=== PATIENT | male | born 1955 | race Caucasian/White ===

== ENCOUNTER → 2021-05-31 | Outpatient (CLI) | payer MEDICARE | END | disposition home or self-care (01) | LOC: LABWHC1 10:41 | PROVIDERS: ATTEND Internal Medicine Nephrology | DX: Z94.0 Kidney transplant status (principal) | CPT/HCPCS: 36415; 80197; 83970; 84153 ==

== ENCOUNTER → 2021-12-15 | Outpatient (CLI) | payer MEDICARE ==
--- NOTE | 2021-12-15 11:54 | XR ---
EXAMINATION TYPE: XR abdomen 1V DATE OF EXAM: 12/15/2021 11:39 AM CLINICAL HISTORY: Status post pancreatic duct stent placed 2 weeks ago with rising lab values. TECHNIQUE: Two Supine KUB images of the abdomen are obtained. COMPARISON: None. FINDINGS: Scattered gas is seen in nondistended small and large bowel loops. Cystectomy clips are pre sent. Additional surgical clips overlie the left pelvis and right mid abdomen. Scattered vascular abdi cification is seen. Metallic hardware from right hip arthroplasty is partially imaged. No radiodense catheter or stent in the epigastric region or right upper to mid abdomen clearly identified. IMPRESSION: As above. Consider further investigation with CT exam based on clinical and lab correlati on.
== END | disposition home or self-care (01) ==
LOC: RADXRMAIN 11:22
PROVIDERS: ATTEND Internal Medicine Gastroenterology
DX: Z96.89 Presence of other specified functional implants (principal); Z96.641 Presence of right artificial hip joint
CPT/HCPCS: 74018

== ENCOUNTER → 2022-03-01 | Outpatient (CLI) | payer MEDICARE ==
[2022-03-01 11:38] LABS: Creatinine,Urine Random 162.1 mg/dL; Protein/Creatinine Ratio,Urine 0.043
[2022-03-01 14:39] LABS: HCT 39.2 % (39.6-50.0); HGB 12.2 g/dL (13.0-17.0); MCH 27.7 pg (27.0-32.0); MCHC 31.1 g/dL (32.0-37.0); MCV 89.1 fL (80.0-97.0); Mean Platelet Volume 10.5 fL (9.5-12.2); NRBC Per 100 WBC 0 /100 WBCS (0.0-0.0); Platelet Count 222 X 10*3/uL (140-440); RDW 13.2 % (11.5-14.5); WBC 8.73 X 10*3/uL (4.50-10.00)
[2022-03-01 14:45] LABS: % Iron Saturation 14.64 (15.00-50.00)
[2022-03-01 14:46] LABS: African American GFR (CKD) 51.7 (60.0-200.0); Albumin 4.4 g/dL (3.8-4.9); Albumin/Globulin Ratio 1.84 (1.60-3.17); Anion Gap 12.4 mmol/L (10.00-18.00); BUN/Creat Ratio 17.17 Ratio (12.00-20.00); Blood Urea Nitrogen 27.3 mg/dL (9.0-27.0); Calcium 9.5 mg/dL (8.7-10.3); Carbon Dioxide 25.9 mmol/L (20.0-27.5); Globulin 2.4 g/dL (1.6-3.3); Non-African American GFR(CKD) 44.6 (60.0-200.0); Potassium 4.2 mmol/L (3.5-5.5); Total Bilirubin 0.3 mg/dL (0.30-1.20); Total Protein 6.7 g/dL (6.2-8.2)
[2022-03-01 19:50] LABS: Appearance,Urine Clear (Clear); Bilirubin,Urine Negative (Negative); Blood,Urine Negative (Negative); Color,Urine Yellow (Yellow); Ketones,Urine Trace mg/dL (Negative); Nitrite,Urine Negative (Negative); Specific Gravity,Urine 1.019 (1.001-1.030); Urobilinogen,Urine 0.2 (0.2,1.0)
== END | disposition home or self-care (01) ==
LOC: LABWHC1 09:25
PROVIDERS: ATTEND Internal Medicine Nephrology
DX: Z94.0 Kidney transplant status (principal)
CPT/HCPCS: 36415; 80053; 80197; 81003; 82570; 82728; 83540; 83550; 84156; 85027

== ENCOUNTER → 2022-04-21 | Outpatient (CLI) | payer MEDICARE ==
[2022-04-21 14:40] LABS: African American GFR (CKD) 51.3 (60.0-200.0); BUN/Creat Ratio 17.5 Ratio (12.00-20.00); Calcium 9.9 mg/dL (8.7-10.3); Non-African American GFR(CKD) 44.2 (60.0-200.0)
== END | disposition home or self-care (01) ==
LOC: LABWHC1 10:16
PROVIDERS: ATTEND Internal Medicine Nephrology
DX: Z94.0 Kidney transplant status (principal)
CPT/HCPCS: 36415; 80048; 80197

== ENCOUNTER → 2022-05-28 | Outpatient (CLI) | payer MEDICARE ==
[2022-05-28 11:17] LABS: Protein/Creatinine Ratio,Urine 0.032
[2022-05-28 16:35] LABS: Basophils # (A) 0.06 X 10*3/uL (0.00-0.10); Basophils % (A) 0.7 %; Eosinophils # (A) 0.11 X 10*3/uL (0.04-0.35); Eosinophils % (A) 1.3 %; HCT 39.2 % (39.6-50.0); HGB 12.5 g/dL (13.0-17.0); Immature Grans, Automated 0.5 %; Lymphocytes # (A) 2.37 X 10*3/uL (0.90-5.00); Lymphocytes % (A) 27.2 %; MCH 28.3 pg (27.0-32.0); MCHC 31.9 g/dL (32.0-37.0); MCV 88.9 fL (80.0-97.0); Monocytes # (A) 0.81 X 10*3/uL (0.20-1.00); Monocytes % (A) 9.3 %; NRBC Per 100 WBC 0 /100 WBCS (0.0-0.0); Neutrophils # (A) 5.31 X 10*3/uL (1.80-7.70); Platelet Count 234 X 10*3/uL (140-440); RBC 4.41 X 10*6/uL (4.40-5.60); RDW 13.3 % (11.5-14.5)
[2022-05-28 17:08] LABS: ALT 16 U/L (10-49); AST 18 U/L (14-35); African American GFR (CKD) 51.3 (60.0-200.0); Albumin 4.5 g/dL (3.8-4.9); Albumin/Globulin Ratio 1.93 (1.60-3.17); Alkaline Phosphatase 166 U/L (41-126); Blood Urea Nitrogen 39.2 mg/dL (9.0-27.0); Calcium 9.7 mg/dL (8.7-10.3); Carbon Dioxide 23.4 mmol/L (20.0-27.5); Chloride 101 mmol/L (96-109); Chol/HDL Ratio 3.28 Ratio; Globulin 2.3 g/dL (1.6-3.3); Glucose 128 mg/dL (70-110); LDL Cholesterol,Calculated 41.9 mg/dL (0.0-131.0); Magnesium 1.8 mg/dL (1.5-2.4); Non-African American GFR(CKD) 44.2 (60.0-200.0); Phosphorus 3.1 mg/dL (2.4-5.1); Potassium 4.3 mmol/L (3.5-5.5); Sodium 138 mmol/L (135-145); Total Protein 6.9 g/dL (6.2-8.2)
[2022-05-28 17:33] LABS: Appearance,Urine Cloudy (Clear); Bilirubin,Urine Negative (Negative); Blood,Urine Negative (Negative); Color,Urine Yellow (Yellow); Ketones,Urine Trace mg/dL (Negative); Nitrite,Urine Negative (Negative); PH, Urine 5.5 (5.0-8.0); Specific Gravity,Urine 1.021 (1.001-1.030); Urobilinogen,Urine 0.2 (0.2,1.0)
[2022-05-28 18:06] LABS: Bacteria,Urine None Seen /HPF (None Seen); Calcium Oxalate Crystals,Urine Present /LPF (None Seen)
== END | disposition home or self-care (01) ==
LOC: LABWHC1 09:20
PROVIDERS: ATTEND Internal Medicine Nephrology
DX: Z94.0 Kidney transplant status (principal)
CPT/HCPCS: 36415; 80053; 80061; 80197; 81001; 82570; 83735; 84100; 84156; 85025

== ENCOUNTER → 2022-06-27 | Outpatient (CLI) | payer MEDICARE ==
[2022-06-27 10:02] LABS: INR 1.2 (<1.2); Prothrombin Time 12.6 sec (9.0-12.0)
[2022-06-27 15:14] LABS: HCT 41.9 % (39.6-50.0); HGB 13.1 g/dL (13.0-17.0); MCH 28.2 pg (27.0-32.0); MCHC 31.3 g/dL (32.0-37.0); MCV 90.3 fL (80.0-97.0); Mean Platelet Volume 10.6 fL (9.5-12.2); NRBC Per 100 WBC 0 /100 WBCS (0.0-0.0); Platelet Count 232 X 10*3/uL (140-440); RBC 4.64 X 10*6/uL (4.40-5.60); RDW 13.5 % (11.5-14.5); WBC 7.81 X 10*3/uL (4.50-10.00)
[2022-06-27 16:07] LABS: African American GFR (CKD) 55.4 (60.0-200.0); BUN/Creat Ratio 18.93 Ratio (12.00-20.00); Blood Urea Nitrogen 28.4 mg/dL (9.0-27.0); Calcium 10.1 mg/dL (8.7-10.3); Non-African American GFR(CKD) 47.8 (60.0-200.0); Potassium 4.1 mmol/L (3.5-5.5)
== END | disposition home or self-care (01) ==
LOC: LABWHC1 08:43
PROVIDERS: ATTEND Nurse Practitioner Family
DX: Z01.810 Encounter for preprocedural cardiovascular examination (principal); I10 Essential (primary) hypertension; I48.11 Longstanding persistent atrial fibrillation
CPT/HCPCS: 36415; 80048; 85027; 85610; 85730

== ENCOUNTER → 2023-02-24 | Outpatient (CLI) | payer MEDICARE ==
[2023-02-24 15:55] LABS: % Iron Saturation 18.21 (15.00-50.00); ALT 17 U/L (10-49); AST 13 U/L (14-35); Albumin 4.3 d/dL (3.8-4.9); Albumin/Globulin Ratio 1.72 Ratio (1.60-3.17); Alkaline Phosphatase 202 U/L (41-126); BUN/Creat Ratio 18.23 Ratio (12.00-20.00); Blood Urea Nitrogen 23.7 mg/dL (9.0-27.0); Calcium 9.7 mg/dL (8.7-10.3); Chloride 102 mmol/L (96-109); Chol/HDL Ratio 2.95 Ratio; Globulin 2.5 d/dL (1.6-3.3); Glucose 180 mg/dL (70-110); Iron 51 UG/DL (65-175); LDL Cholesterol,Calculated 42.5 mg/dL (0.0-131.0); Sodium 142 mmol/L (135-145); Total Bilirubin <0.2 mg/dL (0.3-1.2); Total Iron Binding Capacity 280 UG/DL (228-460); Total Protein 6.8 d/dL (6.2-8.2)
[2023-02-24 15:56] LABS: Basophils # (A) 0.04 X 10*3/uL (0.00-0.10); Basophils % (A) 0.6 %; Eosinophils # (A) 0.11 X 10*3/uL (0.04-0.35); Eosinophils % (A) 1.6 %; HCT 39.9 % (39.6-50.0); HGB 12.8 d/dL (12.0-15.0); Lymphocytes # (A) 1.53 X 10*3/uL (0.90-5.00); Lymphocytes % (A) 22.8 %; MCH 28.9 pg (27.0-32.0); MCHC 32.1 d/dL (32.0-37.0); MCV 90.1 FL (80.0-97.0); Mean Platelet Volume 10.2 FL (9.5-12.2); Monocytes # (A) 0.59 X 10*3/uL (0.20-1.00); Monocytes % (A) 8.8 %; NRBC Per 100 WBC 0 X 10*3/uL (0.00-0.01); Neutrophils # (A) 4.41 X 10*3/uL (1.80-7.70); Neutrophils % (A) 65.8 %; Platelet Count 207 X 10*3/uL (140-440); RBC 4.43 X 10*6/uL (4.40-5.60); RDW 13.4 % (11.5-14.5); WBC 6.71 X 10*3/uL (4.50-10.00)
[2023-02-24 16:28] LABS: Appearance,Urine Clear (Clear); Bilirubin,Urine Negative (Negative); Blood,Urine Negative (Negative); Color,Urine Yellow (Yellow); Ketones,Urine Negative (Negative); Nitrite,Urine Negative (Negative); PH, Urine 7.5; Specific Gravity,Urine 1.017 (1.001-1.030); Urobilinogen,Urine 0.2
== END | disposition home or self-care (01) ==
LOC: LABWHC1 08:26
PROVIDERS: ATTEND Internal Medicine Nephrology
DX: N18.30 Chronic kidney disease, stage 3 unspecified (principal)
CPT/HCPCS: 36415; 80053; 80061; 80197; 81003; 82043; 82570; 82728; 83540; 83550; 83970; 84100; 84153; 85025

== ENCOUNTER → 2023-08-23 | Outpatient (CLI) | payer MEDICARE ==
[2023-08-23 15:38] LABS: % Iron Saturation 21.66 (15.00-50.00); ALT 15 U/L (10-49); AST 13 U/L (14-35); Albumin 4.4 g/dL (3.8-4.9); Albumin/Globulin Ratio 1.57 Ratio (1.60-3.17); Alkaline Phosphatase 173 U/L (41-126); BUN/Creat Ratio 15.31 Ratio (12.00-20.00); Blood Urea Nitrogen 19.9 mg/dL (9.0-27.0); Calcium 9.9 mg/dL (8.7-10.3); Carbon Dioxide 24.9 mmol/L (21.6-31.8); Chloride 104 mmol/L (96-109); Chol/HDL Ratio 3.47 Ratio; Globulin 2.8 g/dL (1.6-3.3); Glucose 155 mg/dL (70-110); Iron 60 UG/DL (65-175); LDL Cholesterol,Calculated 81.8 mg/dL (0.0-131.0); Phosphorus 2.9 mg/dL (2.4-5.1); Potassium 4.4 mmol/L (3.5-5.5); Prostate Specific Antigen 4.09 ng/mL (0.000-4.500); Sodium 140 mmol/L (135-145); Total Bilirubin 0.4 mg/dL (0.3-1.2); Total Iron Binding Capacity 277 UG/DL (228-460); Total Protein 7.2 g/dL (6.2-8.2)
[2023-08-23 15:39] LABS: Basophils # (A) 0.05 X 10*3/uL (0.00-0.10); Basophils % (A) 0.7 %; Eosinophils # (A) 0.07 X 10*3/uL (0.04-0.35); HCT 39.7 % (39.6-50.0); HGB 12.7 g/dL (13.0-17.0); Lymphocytes # (A) 1.33 X 10*3/uL (0.90-5.00); Lymphocytes % (A) 19.5 %; MCH 28.3 pg (27.0-32.0); MCV 88.4 FL (80.0-97.0); Mean Platelet Volume 10.7 FL (9.5-12.2); Monocytes % (A) 8.8 %; NRBC Per 100 WBC 0 X 10*3/uL (0.00-0.01); Neutrophils # (A) 4.75 X 10*3/uL (1.80-7.70); Neutrophils % (A) 69.6 %; Platelet Count 198 X 10*3/uL (140-440); RBC 4.49 X 10*6/uL (4.40-5.60); RDW 13.5 % (11.5-14.5); WBC 6.83 X 10*3/uL (4.50-10.00)
[2023-08-23 16:44] LABS: Appearance,Urine Cloudy (Clear); Bilirubin,Urine Negative (Negative); Blood,Urine Negative (Negative); Color,Urine Yellow (Yellow); Ketones,Urine Negative (Negative); Nitrite,Urine Negative (Negative); Specific Gravity,Urine 1.013 (1.001-1.030); Urobilinogen,Urine 0.2 E.U./DL
[2023-08-23 16:57] LABS: Bacteria,Urine None Seen (None Seen)
== END | disposition home or self-care (01) ==
LOC: LABWHC1 10:47
PROVIDERS: ATTEND Internal Medicine Nephrology
DX: N18.30 Chronic kidney disease, stage 3 unspecified (principal)
CPT/HCPCS: 36415; 80053; 80061; 80197; 81001; 82043; 82570; 82728; 83540; 83550; 83970; 84100; 84153; 85025

== ENCOUNTER → 2024-01-09 | Outpatient (CLI) | payer MEDICARE ==
[2024-01-09 15:49] LABS: Basophils # (A) 0.05 X 10*3/uL (0.00-0.10); Basophils % (A) 0.6 %; Eosinophils # (A) 0.13 X 10*3/uL (0.04-0.35); Eosinophils % (A) 1.6 %; HCT 40.3 % (39.6-50.0); HGB 12.8 g/dL (13.0-17.0); Lymphocytes # (A) 1.73 X 10*3/uL (0.90-5.00); Lymphocytes % (A) 21.5 %; MCH 28.1 pg (27.0-32.0); MCHC 31.8 g/dL (32.0-37.0); MCV 88.4 FL (80.0-97.0); Mean Platelet Volume 10.2 FL (9.5-12.2); Monocytes # (A) 0.72 X 10*3/uL (0.20-1.00); Monocytes % (A) 8.9 %; NRBC Per 100 WBC 0 X 10*3/uL (0.00-0.01); Platelet Count 216 X 10*3/uL (140-440); RBC 4.56 X 10*6/uL (4.40-5.60); RDW 13.6 % (11.5-14.5); WBC 8.06 X 10*3/uL (4.50-10.00)
[2024-01-09 16:00] LABS: Appearance,Urine Clear (Clear); Bilirubin,Urine Negative (Negative); Blood,Urine Negative (Negative); Color,Urine Yellow (Yellow); Ketones,Urine Negative (Negative); Nitrite,Urine Negative (Negative); PH, Urine 7.5; Specific Gravity,Urine 1.016 (1.001-1.030); Urobilinogen,Urine 0.2 E.U./DL
[2024-01-09 16:29] LABS: % Iron Saturation 21.66 (15.00-50.00); ALT 18 U/L (10-49); AST 19 U/L (14-35); Albumin 4.6 g/dL (3.8-4.9); Albumin/Globulin Ratio 1.77 Ratio (1.60-3.17); Alkaline Phosphatase 153 U/L (41-126); BUN/Creat Ratio 20.14 Ratio (12.00-20.00); Blood Urea Nitrogen 28.2 mg/dL (9.0-27.0); Calcium 10.1 mg/dL (8.7-10.3); Carbon Dioxide 25.3 mmol/L (21.6-31.8); Chloride 102 mmol/L (96-109); Chol/HDL Ratio 3.63 Ratio; Globulin 2.6 g/dL (1.6-3.3); Glucose 159 mg/dL (70-110); Iron 60 UG/DL (65-175); LDL Cholesterol,Calculated 76.7 mg/dL (0.0-131.0); Phosphorus 3.2 mg/dL (2.4-5.1); Potassium 4.2 mmol/L (3.5-5.5); Prostate Specific Antigen 4.25 ng/mL (0.000-4.500); Sodium 141 mmol/L (135-145); Total Bilirubin 0.4 mg/dL (0.3-1.2); Total Iron Binding Capacity 277 UG/DL (228-460); Total Protein 7.2 g/dL (6.2-8.2)
[2024-01-09 22:16] LABS: Urine Creatinine 90.4 mg/dL (39.0-259.0)
== END | disposition home or self-care (01) ==
LOC: LABWHC1 09:33
PROVIDERS: ATTEND Internal Medicine Nephrology
DX: N18.30 Chronic kidney disease, stage 3 unspecified (principal)
CPT/HCPCS: 36415; 80053; 80061; 80197; 81003; 82043; 82570; 82728; 83540; 83550; 83970; 84100; 84153; 85025

== ENCOUNTER → 2024-03-07 | Outpatient (CLI) | payer MEDICARE | END | disposition home or self-care (01) | LOC: LABWHC1 09:27 | PROVIDERS: ATTEND Internal Medicine Nephrology | DX: Z94.0 Kidney transplant status (principal) | CPT/HCPCS: 36415 ==

== ENCOUNTER → 2024-07-06 | Outpatient (CLI) | payer MEDICARE ==
[2024-07-06 11:45] LABS: INR 1.1 (<1.2); Prothrombin Time 11.8 sec (10.0-12.5)
[2024-07-06 23:35] LABS: Basophils # (A) 0.04 X 10*3/uL (0.00-0.10); Basophils % (A) 0.6 %; Eosinophils # (A) 0.11 X 10*3/uL (0.04-0.35); Eosinophils % (A) 1.8 %; HCT 35.2 % (39.6-50.0); HGB 10.4 g/dL (13.0-17.0); Lymphocytes # (A) 1.73 X 10*3/uL (0.90-5.00); Lymphocytes % (A) 27.9 %; MCH 23.1 pg (27.0-32.0); MCHC 29.5 g/dL (32.0-37.0); MCV 78.2 FL (80.0-97.0); Monocytes # (A) 0.74 X 10*3/uL (0.20-1.00); NRBC Per 100 WBC 0 X 10*3/uL (0.00-0.01); Neutrophils # (A) 3.51 X 10*3/uL (1.80-7.70); Neutrophils % (A) 56.7 %; Platelet Count 282 X 10*3/uL (140-440); RDW 18.7 % (11.5-14.5); WBC 6.19 X 10*3/uL (4.50-10.00)
== END | disposition home or self-care (01) ==
LOC: LABWHC1 10:33
PROVIDERS: ATTEND Internal Medicine Nephrology
DX: N17.9 Acute kidney failure, unspecified (principal)
CPT/HCPCS: 36415; 85025; 85610; 85730

== ENCOUNTER → 2024-07-17 | Outpatient (CLI) | payer MEDICARE ==
[2024-07-17 13:37] LABS: Creatinine,Urine Random 87.6 mg/dL; Protein/Creatinine Ratio,Urine 1.199
[2024-07-17 16:09] LABS: Basophils # (A) 0.06 X 10*3/uL (0.00-0.10); Basophils % (A) 0.9 %; Eosinophils % (A) 1.5 %; HCT 33.9 % (39.6-50.0); HGB 9.9 g/dL (13.0-17.0); Lymphocytes % (A) 30.5 %; MCH 22.8 pg (27.0-32.0); MCHC 29.2 g/dL (32.0-37.0); MCV 78.1 FL (80.0-97.0); Mean Platelet Volume 9.9 FL (9.5-12.2); Monocytes % (A) 8.7 %; NRBC Per 100 WBC 0 X 10*3/uL (0.00-0.01); Neutrophils # (A) 3.99 X 10*3/uL (1.80-7.70); Neutrophils % (A) 57.8 %; Platelet Count 247 X 10*3/uL (140-440); RBC 4.34 X 10*6/uL (4.40-5.60); WBC 6.89 X 10*3/uL (4.50-10.00)
[2024-07-17 16:29] LABS: BUN/Creat Ratio 11.71 Ratio (12.00-20.00); Blood Urea Nitrogen 19.9 mg/dL (9.0-27.0); Carbon Dioxide 27.4 mmol/L (21.6-31.8); Chloride 100 mmol/L (96-109); Glucose 129 mg/dL (70-110); Potassium 3.7 mmol/L (3.5-5.5); Sodium 139 mmol/L (135-145)
[2024-07-17 16:30] LABS: ALT 20 U/L (10-49); AST 22 U/L (14-35); Albumin 3.7 g/dL (3.8-4.9); Albumin/Globulin Ratio 1.23 Ratio (1.60-3.17); Alkaline Phosphatase 125 U/L (41-126); Calcium 9.4 mg/dL (8.7-10.3); Phosphorus 3.3 mg/dL (2.4-5.1); Total Bilirubin 0.3 mg/dL (0.3-1.2); Total Protein 6.7 g/dL (6.2-8.2)
== END | disposition home or self-care (01) ==
LOC: LABWHC1 10:19
PROVIDERS: ATTEND Internal Medicine Nephrology
DX: Z94.0 Kidney transplant status (principal)
CPT/HCPCS: 36415; 80053; 82465; 82570; 84100; 84156; 85025

== ENCOUNTER → 2024-08-17 | Outpatient (CLI) | payer MEDICARE ==
[2024-08-17 13:47] LABS: Basophils # (A) 0.04 X 10*3/uL (0.00-0.10); Basophils % (A) 0.5 %; Eosinophils # (A) 0.12 X 10*3/uL (0.04-0.35); Eosinophils % (A) 1.6 %; HCT 37.6 % (39.6-50.0); Lymphocytes # (A) 2.31 X 10*3/uL (0.90-5.00); Lymphocytes % (A) 30.6 %; MCH 23.2 pg (27.0-32.0); MCHC 29.3 g/dL (32.0-37.0); MCV 79.3 FL (80.0-97.0); Mean Platelet Volume 9.6 FL (9.5-12.2); Monocytes # (A) 0.86 X 10*3/uL (0.20-1.00); Monocytes % (A) 11.4 %; NRBC Per 100 WBC 0 X 10*3/uL (0.00-0.01); Neutrophils # (A) 4.17 X 10*3/uL (1.80-7.70); Neutrophils % (A) 55.1 %; Platelet Count 204 X 10*3/uL (140-440); RBC 4.74 X 10*6/uL (4.40-5.60); WBC 7.56 X 10*3/uL (4.50-10.00)
[2024-08-17 14:31] LABS: BUN/Creat Ratio 18.53 Ratio (12.00-20.00); Blood Urea Nitrogen 27.8 mg/dL (9.0-27.0); Chloride 103 mmol/L (96-109); Glucose 119 mg/dL (70-110); Phosphorus 3.2 mg/dL (2.4-5.1); Potassium 3.7 mmol/L (3.5-5.5); Sodium 141 mmol/L (135-145)
[2024-08-17 14:32] LABS: ALT 29 U/L (10-49); AST 25 U/L (14-35); Albumin/Globulin Ratio 1.33 Ratio (1.60-3.17); Alkaline Phosphatase 114 U/L (41-126); Calcium 9.5 mg/dL (8.7-10.3); T4, Free (Free Thyroxine) 1.07 ng/dL (0.80-1.80); Total Bilirubin 0.3 mg/dL (0.3-1.2)
== END | disposition home or self-care (01) ==
LOC: LABWHC1 10:08
PROVIDERS: ATTEND Internal Medicine
DX: Z94.0 Kidney transplant status (principal)
CPT/HCPCS: 36415; 80053; 82465; 82570; 84100; 84439; 84443; 85025

== ENCOUNTER → 2024-09-24 | Outpatient (CLI) | payer MEDICARE ==
[2024-09-24 16:05] LABS: T4, Free (Free Thyroxine) 1.18 ng/dL (0.80-1.80)
== END | disposition home or self-care (01) ==
LOC: LABWHC1 08:17
PROVIDERS: ATTEND Nurse Practitioner
DX: C76.0 Malignant neoplasm of head, face and neck (principal)
CPT/HCPCS: 36415; 84439; 84443

== ENCOUNTER → 2024-10-12 | Outpatient (CLI) | payer MEDICARE | END | disposition home or self-care (01) | LOC: LABWHC1 09:43 | PROVIDERS: ATTEND Internal Medicine Nephrology | DX: I12.9 Hypertensive chronic kidney disease with stage 1 through stage 4 chronic kidney disease, or unspecified chronic kidney disease (principal); N18.9 Chronic kidney disease, unspecified | CPT/HCPCS: 36415; 80195 ==

== ENCOUNTER → 2024-12-31 | Outpatient (CLI) | payer MEDICARE ==
[2024-12-31 11:58] LABS: Creatinine,Urine Random 61.3 mg/dL
[2024-12-31 12:08] LABS: Protein/Creatinine Ratio,Urine 4.372
[2024-12-31 15:09] LABS: Basophils # (A) 0.06 X 10*3/uL (0.00-0.10); Basophils % (A) 0.8 %; Eosinophils # (A) 0.11 X 10*3/uL (0.04-0.35); Eosinophils % (A) 1.4 %; HCT 39.2 % (39.6-50.0); HGB 12.3 g/dL (13.0-17.0); Lymphocytes # (A) 2.37 X 10*3/uL (0.90-5.00); Lymphocytes % (A) 31.2 %; MCH 24.7 pg (27.0-32.0); MCHC 31.4 g/dL (32.0-37.0); MCV 78.7 FL (80.0-97.0); Mean Platelet Volume 9.5 FL (9.5-12.2); Monocytes # (A) 0.72 X 10*3/uL (0.20-1.00); Monocytes % (A) 9.5 %; NRBC Per 100 WBC 0 X 10*3/uL (0.00-0.01); Neutrophils # (A) 4.28 X 10*3/uL (1.80-7.70); Neutrophils % (A) 56.3 %; Platelet Count 250 X 10*3/uL (140-440); RBC 4.98 X 10*6/uL (4.40-5.60); RDW 15.9 % (11.5-14.5)
[2024-12-31 15:21] LABS: ALT 28 U/L (10-49); AST 25 U/L (14-35); Albumin 3.9 g/dL (3.8-4.9); Alkaline Phosphatase 136 U/L (41-126); BUN/Creat Ratio 18.71 Ratio (12.00-20.00); Blood Urea Nitrogen 26.2 mg/dL (9.0-27.0); Calcium 9.6 mg/dL (8.7-10.3); Carbon Dioxide 25.6 mmol/L (21.6-31.8); Chloride 103 mmol/L (96-109); Glucose 100 mg/dL (70-110); Phosphorus 3.3 mg/dL (2.4-5.1); Potassium 3.8 mmol/L (3.5-5.5); Sodium 140 mmol/L (135-145); Total Bilirubin 0.3 mg/dL (0.3-1.2); Total Protein 6.9 g/dL (6.2-8.2)
== END | disposition home or self-care (01) ==
LOC: LABWHC1 10:25
PROVIDERS: ATTEND Internal Medicine Nephrology
DX: Z94.0 Kidney transplant status (principal)
CPT/HCPCS: 36415; 80053; 80195; 82465; 82570; 84100; 84156; 85025